=== PATIENT | male | born 1990 | race Caucasian/White ===

== ENCOUNTER 2018-01-02 15:26 | Emergency (ER) | payer BC ==
[~2018-01-02] VITALS: Ht 188 cm; Wt 106.6 kg
[2018-01-02] MEDS ORDERED: NAPROSYN500 MG PO (17:52)
[2018-01-02] MEDS ORDERED: TRAMADOL 50 MG50 MG PO (17:52)
[2018-01-02 18:12] VITALS: BP 141/90
--- NOTE | 2018-01-03 10:12 | EKG ---
[place] [address] ELECTROCARDIOGRAM REPORT Name: ELIZABETH MONSON Room: [facility]#: [id number] Admission: 01/02/18 Attend Phys: Discharge: 01/02/18 Date of : 89 Report #: [id number] THIS REPORT FOR: //name// [facility] ED Test Date: 2018-01-02 Test Time: 17:59:25 Pat Name: ELIZABETH MONSON Department: Room: Gender: M [employer] Developer: DONNA : 1990 Requested By: Karis Leach Order Number: [id number] MD: Kalpesh Bhatti Measurements Intervals Emma Rate: 81 P: 66 LA: 171 QRS: 60 QRSD: 94 T: 40 QT: 350 QTc: 407 Interpretive Statements Sinus rhythm RSR' in V1 or V2, probably normal variant ST elev, probable normal early repol pattern No previous ECG available for comparison Electronically Signed On 01-03-2018 10:11:49 CDT by Kalpesh Bhatti [email or web address] <ELECTRONICALLY SIGNED> By: Marshall Bhatti MD, [facility] 01/03/18 1011 1759 1759 Marshall Bhatti MD, [facility] /EPI
== END 2018-01-02 18:12 | disposition home or self-care (01) ==
LOC: M.ERS 15:26
DX: R51 Headache (principal); M54.5 Low back pain; M54.2 Cervicalgia

== ENCOUNTER → 2020-04-14 | Outpatient (CLI) | payer OTHER ==
[~2020-04-14] MED LIST: NAPROSYN500 MG PO; TRAMADOL 50 MG50 MG PO
== END ==
LOC: M.RAD 10:14
PROVIDERS: ATTEND Orthopaedic Surgery
DX: M19.072 Primary osteoarthritis, left ankle and foot (principal)